=== PATIENT | female | born 1955 | race African-American/Black ===

== ENCOUNTER 2016-07-22 13:45 | Emergency (ER) | payer MEDICAID ==
--- NOTE | 2016-07-22 13:55 | EDPRACDOC ---
- General Information Stated Complaint: SLIPPED FELT A CRACK IN RT ANKLE Time Seen by Provider: 07/22/16 13:52 Information Source: Patient Home Medications: Home Medications Hydrocodone Bit/Acetaminophen [Lortab 5/325] 1 tab PO Q4-6H PRN #15 tab Allergies/Adverse Reactions: Allergies Allergy/AdvReac Type Severity Reaction Status Date / Time ibuprofen Allergy Severe hives Verified 05/01/13 18:10 latex Allergy hives Verified 05/01/13 18:10 - History of Present Illness Onset: yesterday HPI: Pt states slipped on leaves in yard yesterday and injured R ankle and foot. Denies numbness, leg or knee pain. Ankle Problem Location: Reports: Right, Medial, Lateral Mechanism: Reports: Unknown Circumstances: Reports: Fall, Spontaneous Tetanus Up To Date?: No Able to Bear Weight: Limited Pain Severity: Reports: Moderate Associated Signs & Symptoms: Reports: Swelling, Foot Pain ED Past Medical History - History Reviewed Yes Nurses notes reviewed and agree except as marked - Patient Medical History Cardiac History: Reports: Hypertension Surgical History: Reports: Tonsillectomy/Adnoidectomy - Social Medical History Smoking Status: Never smoker ETOH: None Substance Abuse: None EDM Review of Systems - Review of Systems Constitutional: No Symptoms Reported. negative: Fever, Chills, Weakness, Fatigue, Loss of Appetite Neurological: No Symptoms Reported. negative: Headache, Dizziness, Seizure, Numbness, Weakness, Speech Difficulty, Gait Difficulty Musculoskeletal: Ankle, Foot Integumentary: No Symptoms Reported. negative: Itching, Rash, Bruising, Wound Allergic/Immunologic: No Symptoms Reported. negative: Hives, Itching Hematologic: No Symptoms Reported. negative: Lymphadenopathy, Easy Bruising, Easy Bleeding Psychiatric: No Symptoms Reported. negative: Anxiety, Depression, Hallucinations, Insomnia, Suicidal - Physical Exam Constitutional: Alert Oriented to: Time, Person, Place Last recorded Vital Signs: Oxygen Pulse Oxygen Saturation O2 Device Oxygen Flow Rate Fraction of Inspired Oxygen ( FIO2) - HEENT Head: Normal ( normocephalic) - Respiratory/Cardiovascular Respiratory: Normal - CTA (BBS clear to auscultation without adventitious sounds ) Cardiovascular: Normal (RRR without murmur, gallop or rub) - Musculoskeletal Extremities: Normal (Normal tone, Pulses 2+ No cyanosis or edema, FROM) - Integumentary Skin: Normal, Warm, Dry Lymphatics: Normal (no adenopathy) - Neurologic Memory Impaired: Normal Motor Function: Normal (Normal tone, Pulses 2+ No cyanosis or edema, FROM) Mood Description: Normal Perception: Normal ED Ankle Problem Phys Exam - Musculoskeletal Ankle: Swelling, Mild Tenderness Achilles Tendon: Normal Knee: Normal Lower Leg: Normal Foot: Swelling Distal Function/Circulation: Normal (CN II-X11 intact,strength 5/5, sensation nl ) - Integumentary Skin: Normal (warm and dry) Lymphatics: Normal ED Procedures - Splinting 1st splint Location: R ankle Hand-Made Type: orthoglass Splint: posterior short leg Pre-Proc Neuro Vasc Exam: normal Post-Proc Neuro Vasc Exam: normal Other Devices: Crutches - Differential Diagnosis Contusion, Fracture, Sprain - Diagnostic Imaging Foot Image interpreted by: Radiologist IMPRESSION: Small acute traumatic avulsion fracture arising from the anterior talus along its dorsal surface. Ankle Image interpreted by: Radiologist IMPRESSION: 1. Dorsal talar avulsion fracture. 2. Mild soft tissue swelling overlying the lateral malleolus. Decision Time to Discharge: 14:56 - Departure Disposition: Home Condition: Good Final Diagnosis: Fracture, talus closed Qualifiers: Encounter type: initial encounter Fracture morphology: avulsion Fracture alignment: nondisplaced Laterality: right Qualified Code(s): S92.154A - Nondisplaced avulsion fracture (chip fracture) of right talus, initial encounter for closed fracture Instructions: RICE: Routine Care for Injuries, Ankle Fracture (ED) Education/Counseling Given To: Patient Education/Counseling Given Regarding: Diagnosis, Treatment, Follow Up Referrals: Pablito Thurman MD [Primary Care Provider] - One Week Balta Carlin MD [Staff Physician] - One Week Prescriptions: New Hydrocodone Bit/Acetaminophen [Lortab 5/325] 1 tab PO Q4-6H PRN #15 tab PRN Reason: Pain Additional Instructions: Elevate affected area as much as possible, apply cold compresses 20 mins at a time as needed for pain or swelling, wear splint until you follow up with orthopedics.
[2016-07-22 13:59] VITALS: BP 197/93; PULSE 67; TEMP 98.2; BMI 31.4
--- NOTE | 2016-07-22 14:18 | DIRPT ---
CLINICAL DATA: 61-year-old who stepped in a hole in her yard at home yesterday causing her to fall and injured the right foot and ankle. Initial encounter. EXAM: RIGHT FOOT COMPLETE - 3+ VIEW COMPARISON: No prior foot imaging. Right ankle x-rays obtained concurrently are correlated. FINDINGS: Small avulsion fracture arising from the anterior talus along its dorsal surface. No fractures elsewhere. Well preserved joint spaces. Well preserved bone mineral density. Circumscribed oval opacity in the subcutaneous fat of the dorsum of the foot overlying the heads of the metatarsals on the lateral image, possibly a sebaceous or epidermal cyst. IMPRESSION: Small acute traumatic avulsion fracture arising from the anterior talus along its dorsal surface. Electronically Signed By: Serafin Lowery M.D. On: 07/22/2016 14:15
--- NOTE | 2016-07-22 14:19 | DIRPT ---
CLINICAL DATA: Fall in a hole in the yard yesterday. Lateral and anterior ankle pain. EXAM: RIGHT ANKLE - COMPLETE 3+ VIEW COMPARISON: 07/22/2016 foot radiographs FINDINGS: Dorsal talar avulsion fracture observed. No other fracture identified. Subtle soft tissue swelling overlying the lateral malleolus. IMPRESSION: 1. Dorsal talar avulsion fracture. 2. Mild soft tissue swelling overlying the lateral malleolus. Electronically Signed By: Kenrick Gomez M.D. On: 07/22/2016 14:17
== END 2016-07-22 15:41 | disposition home or self-care (01) ==
LOC: EDMC 13:45
DX: S92.154A Nondisplaced avulsion fracture (chip fracture) of right talus, initial encounter for closed fracture (principal); W01.0XXA Fall on same level from slipping, tripping and stumbling without subsequent striking against object, initial encounter; Y93.9 Activity, unspecified; Y92.007 Garden or yard of unspecified non-institutional (private) residence as the place of occurrence of the external cause
CPT/HCPCS: 29515; 99282